=== PATIENT | male | born 2000 | race Caucasian/White ===

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

== ENCOUNTER → 2020-03-15 12:11 | Outpatient (CLI) | payer BC, SELFPAY ==
[2020-03-15 15:10] LABS: Coronavirus 19 IgG Antibody Negative (Negative); Coronavirus 19 IgM Antibody Negative (Negative)
== END ==
PROVIDERS: PCP Family Medicine; Visit Provider Nurse Practitioner
DX: Z03.818 Encounter for observation for suspected exposure to other biological agents ruled out (principal)
CPT/HCPCS: 36415; 86328

== ENCOUNTER → 2021-11-19 13:31 | Outpatient (CLI) | payer BC, SELFPAY ==
--- NOTE | 2021-11-19 13:37 | US_ITS ---
FINAL REPORT TECHNIQUE: Ultrasound images of the testicles were obtained bilaterally. Color Doppler images were obtained. CLINICAL HISTORY: history of LEFT VARICOCELE ; patient having superior left testicular pain FINDINGS: The right testicle measures 3.8 x 2.8 x 2.5 cm. The left testicle measures 4.0 x 2.9 x 2.1 cm. Arterial flow is identified bilaterally. No intratesticular masses are identified. There is a moderate left varicocele. IMPRESSION: Moderate left varicocele. Reviewed, Interpreted and Dictated by Lan Mcdonnell III, MD Transcribed by Hoda Bunn Authenticated by Lan Mcdonnell III, MD on 11/19/2021 04:03:03 PM [facility]
== END ==
PROVIDERS: PCP Family Medicine; Visit Provider Family Medicine
DX: I86.1 Scrotal varices (principal); Z98.890 Other specified postprocedural states
CPT/HCPCS: 76870

== ENCOUNTER → 2023-05-17 17:46 | Outpatient (CLI) | payer BC, SELFPAY ==
--- NOTE | 2023-05-17 19:17 | XR_ITS ---
PROCEDURE INFORMATION: Exam: XR Left Humerus Exam date and time: 05/17/2023 7:13 PM Age: 22 years old Clinical indication: Pain; Upper arm; Left; Additional info: Left arm injury TECHNIQUE: Imaging protocol: Radiologic exam of the left humerus. Views: 2 or more views. COMPARISON: CR XR SHOULDER LT MIN 2V 05/17/2023 7:11 PM FINDINGS: Bones/joints: No acute fracture or dislocation is identified. Lungs: Limited visualization of the hemithorax demonstrates no acute pathology. Soft tissues: Normal. IMPRESSION: No acute osseous injury.
--- NOTE | 2023-05-17 19:17 | XR_ITS ---
PROCEDURE INFORMATION: Exam: XR Left Shoulder Exam date and time: 05/17/2023 7:11 PM Age: 22 years old Clinical indication: Pain; Shoulder; Left; Additional info: Left upper arm injury TECHNIQUE: Imaging protocol: Radiologic exam of the left shoulder. Views: 2 or more views. COMPARISON: No relevant prior studies available. FINDINGS: Bones/joints: Normal. Lungs: Limited visualization of the hemithorax demonstrates no acute pathology. Soft tissues: Normal. IMPRESSION: No acute fracture or dislocation is identified. Impression: No acute osseous injury.
== END ==
PROVIDERS: PCP Nurse Practitioner Family; Visit Provider Nurse Practitioner Family
DX: M25.512 Pain in left shoulder (principal); M79.602 Pain in left arm; S49.92XA Unspecified injury of left shoulder and upper arm, initial encounter
CPT/HCPCS: 73030; 73060

== ENCOUNTER → 2023-07-30 08:47 | Outpatient (POV) | payer BC, SELFPAY ==
[2023-07-30 09:21] VITALS: BP 143/65; PULSE 88; RESP 18; O2SAT 98; BMI 45.4
--- NOTE | 2023-07-30 09:36 | EXP.PAIN.OV ---
HPI Data of Consult Patient: new to practice Consult date: 07/30/23 Requesting Physician: Sully Stapleton APRN Primary Care Provider: Chaya Pan APRN Consult Narrative Reason for consult: Left TMJ dysfunction History of present illness: Mr. Pan is a 22 year old male who presents today as a new patient. He is a referral from [facility]'s office. Today he rates his pain a 4 out of 10. Patient states his pain is all in his left ear and left jaw area. Patient states this has been going on for 2 years with no additional improvement. Patient denies any specific trauma or injury that initially led to his symptoms. He states that he did have COVID and then a month later that the symptoms occurred. Patient has been to see ENT specialist with no additional improvement. He describes it as a sharp achy sensation that can come and go from time to time. He states when it is aggravated it is very painful. He states that sometimes he does get relief with the chewing sensations. He does state that the pain symptoms do not interfere with his ability to perform activities of daily living such as cooking or cleaning. Patient is interested in any options we may be able to provide. He has tried [id number] Tylenol and ibuprofen along with heat and ice and topicals with no additional relief. His Abdi has been reviewed and is appropriate. CC: Sully Stapleton APRN [facility] Disclaimer: The information contained in this section may have been updated after the patient was seen, as this information can be updated by other users. Medical History Normal hearing test of both ears Tinnitus TMJ tenderness, left Family History (Updated 07/30/23 @ 09:24 by Sophie Grant RN) Other Unknown family medical history Social History (Updated 07/30/23 @ 09:25 by Sophie Grant RN) Smoking Status: Never smoker alcohol intake: never current occupational status: employed Travel in the last 8 weeks: None Review of Systems Review of Systems Review of systems:: pertinent systems reviewed and negative unless documented below Review of systems (narrative): Review of Systems: General: No recent weight changes, no fever, no sleep disturbances Respiratory: No cough, no shortness of air, no recurring pulmonary infections Cardiovascular/peripheral vascular: No chest pain, no palpitations, no edema, no shortness of breath Gastrointestinal: No new onset incontinence, normal bowel movements reported Genitourinary: No new onset incontinence Musculoskeletal: Left ear pain left jaw pain Psychiatric: [Normal mood/affect] Neurological: [Denies weakness in extremities], [denies balance issues] Meds Home Medications and Allergies Home Medications Medication Instructions Recorded Confirmed Type No Known Home Medications 07/15/23 07/15/23 History New Prescriptions to Start Prescriptions: Allergies Allergy/AdvReac Type Severity Reaction Status Date / Time No Known Allergies Allergy Verified 07/15/23 13:23 Objective Narrative: Physical Exam: General: Alert and oriented x3, no acute distress, pleasant and cooperative Lungs: Respirations even and unlabored, symmetrical chest expansion Eyes: PERRL Musculoskeletal: Flexion and extension of cervical spine within normal limits; tenderness along left jaw/TMJ joint Neurological: Speech clear, no gross sensory deficit Assessment and Plan *Assessment and plan (1) TMJ tenderness, left: Status: Acute Category: Medical Code(s): M26.622 - Arthralgia of left temporomandibular joint (2) Left ear pain: Status: Acute Category: Medical Code(s): H92.02 - Otalgia, left ear Plan Patient continues to experience significant pain in his left jaw and ear with tenderness. I have discussed with the patient that he may benefit from left TMJ joint injection. Risk and benefits were discussed with the patie
== END ==
PROVIDERS: PCP Nurse Practitioner Family; Visit Provider Nurse Practitioner Family
DX: M26.622 Arthralgia of left temporomandibular joint (principal); H92.02 Otalgia, left ear
CPT/HCPCS: 99202; G0463

== ENCOUNTER 2023-09-04 12:45 | Day surgery (SDC) | payer BC, SELFPAY ==
[2023-09-04 12:58] VITALS: BP 134/55; PULSE 74; RESP 16; TEMP 36.7; O2SAT 98; BMI 20.6
[2023-09-04] MEDS: methylPREDNISolone ACETATE 80MG/ML VIAL 80 MG (13:11)
[2023-09-04] MEDS: LIDOCAINE 1% 5ML PF VIAL 5 ML (13:12)
[2023-09-04 13:21] VITALS: BP 135/68; PULSE 83; RESP 16; O2SAT 98
--- NOTE | 2023-09-04 14:33 | EXP.PAIN.PRO ---
Procedure Date: 09/04/23 Time: 14:33 Anesthesiologist:: Mundo Lea MD Complications:: None Pre-procedure Diagnosis:: Left temporomandibular joint dysfunction Post-procedure Diagnosis:: Same Indications for Procedure:: The patient is a pleasant 22-year-old white male who has left temporomandibular joint dysfunction. He has some occasional pain in his left jaw. Actually chewing does help. He has failed all conservative therapies he does have a bite guard to use at night. We will do a left temporomandibular joint injection today. Procedure Details:: Left temporomandibular joint injection Informed consent was obtained risk and benefits of the procedure were explained to the patient. Patient was taken to the procedure room. The area in front of the left tragus was prepped using alcohol preps. A 25-gauge needle was inserted and advanced into the left temporomandibular joint. We injected 3 mL bupivacaine 0.25% and Depo-Medrol 40 mg. Patient tolerated the procedure well with no complications. Plan and Disposition:: Will follow-up with this patient in 2 weeks. Will reevaluate symptoms at that time.
== END 2023-09-04 13:21 | disposition home or self-care (01) ==
LOC: SC.PAINP 12:46
PROVIDERS: PCP Nurse Practitioner Family; Visit Provider Anesthesiology
DX: M26.602 Left temporomandibular joint disorder, unspecified (principal)
CPT/HCPCS: 20605; J1040

== ENCOUNTER → 2023-09-16 10:20 | Outpatient (POV) | payer BC, SELFPAY ==
--- NOTE | 2023-09-16 11:00 | A.OFFVIS_ITS ---
[facility] Pain Management SOAP Note Subjective:: Patient is a pleasant 22-year-old male who presents today for follow-up of TMJ joint injection on 09/04/2023. We are currently treating the patient for left TMJ joint dysfunction. Today he rates his pain a 1 out of 10. Patient denies any new trauma or injury. He does state that he did not really notice any additional improvement following this injection. Patient states that he did not really even notice with the numbing medication change. Patient states he continues to have pain in this area and difficulty chewing. Patient states he has been to see a another ENT specialist who did discuss that it could be a nerve that is possibly causing the issues however they did not give any ad ditional updates on what to do from here. Patient denies any heart or kidney issues. His Abdi has been reviewed and is appropriate. Review of Systems: General: No recent weight changes, no fever, no sleep disturbances Respiratory: No cough, no shortness of air, no recurring pulmonary infections Cardiovascular/peripheral vascular: No chest pain, no palpitations, no edema, no shortness of breath Gastrointestinal: No new onset incontinence, normal bowel movements reported Genitourinary: No new onset incontinence Musculoskeletal: Left jaw pain Psychiatric: [Normal mood/affect] Neurological: [Denies weakness in extremities], [denies balance issues] Objective:: Physical Exam: General: Alert and oriented x3, no acute distress, pleasant and cooperative Lungs: Respirations even and unlabored, symmetrical chest expansion Eyes: PERRL Musculoskeletal: Flexion and extension of cervical spine within normal limits Neurological: Speech clear, no gross sensory deficit Assessment:: Left TMJ dysfunction Plan:: Patient continues to experience issues related to his left TMJ dysfunction. I have discussed with the patient that we can try a daily anti-inflammatory of meloxicam 15 mg. Patient denied any heart or kidney issues. I have discussed with the patient that I will send in a 2-week dose of this medication and to discontinue all other NSAIDs while taking this medication and to take it with food to minimize GI upset. I have also discussed with the patient in future that we can always send him for referral for possible Botox injections with Dr. Salvador's office in [place] for the TMJ dysfunction. We will follow-up with this in 2 weeks for reevaluation of symptoms and plan of care. Patient has been instructed to contact the clinic with any concerns before the next appointment. Dr. Lea has reviewed this note and agrees with this plan of care. This note was dictated using voice recognition software and make contain errors or omissions. [facility] Disclaimer: The information contained in this section may have been updated after the patient was seen, as this information can be updated by other users. Medical History Normal hearing test of both ears Tinnitus TMJ tenderness, left Family History Other Unknown family medical history Social History Smoking Status: Never smoker alcohol intake: never current occupational status: employed Travel in the last 8 weeks: None
[2023-09-16 11:51] VITALS: BP 127/59; PULSE 86; RESP 18; O2SAT 98; BMI 20.6
== END | disposition home or self-care (01) ==
PROVIDERS: PCP Nurse Practitioner Family; Visit Provider Nurse Practitioner Family
DX: M26.602 Left temporomandibular joint disorder, unspecified (principal)
CPT/HCPCS: 99212; G0463